=== PATIENT | female | born 1980 | race African-American/Black ===

== ENCOUNTER → 2019-12-12 | Outpatient (CLI) | payer OTHER ==
[2015-08-09 05:35] VITALS: BP 101/64
[~2019-12-12] MED LIST: NAPR-683 PO
--- NOTE | 2019-12-12 17:38 | KCIC ---
Bilateral digital screening mammograms with 3-D tomosynthesis: Reason for examination: Routine baseline screening. Bilateral mammograms in CC and oblique projections were obtained with 2-D imaging and 3-D tomosynthesis imaging on a Siemens Inspiration unit and reviewed on the workstation. Interpretation was made with the benefit of CAD. The skin and nipples show no abnormalities. No abnormal axillary lymph nodes are seen. The breast parenchyma is extremely dense. (Breast density: Category D.) There appear to be small circumscribed lesions superiorly in the left breast which may represent cysts but recommend further evaluation with ultrasound. There are no other dominant masses, suspicious calcifications or architectural distortion. Impression: Dense breast parenchyma. Small circumscribed nodules suggested in the left breast. Recommend further evaluation with ultrasound. Your patient's mammogram demonstrates that she has dense breast tissue (breast density category C or D), which could hide abnormalities, and if she has other risk factors for breast cancer that have been identified, she might benefit from supplemental screening tests that may be suggested by you as her ordering physician. Dense breast tissue, in and of itself, is a relatively common condition. Therefore, this information is not provided to cause undue concern, but rather to raise your awareness and to promote discussion with your patient regarding the presence of other risk factors, in addition to dense breast tissue. Your patient's mammography results will be sent to her. BI-RAD Category 0: Incomplete. Needs additional imaging evaluation. "Our facility is accredited by the [employer] Mammography [employer]." This patient's information has been entered into a reminder system for the patient to be notified with the results of her examination and a target date for the next mammogram. Electronically signed by: Bobbi Donovan MD (12/12/2019 5:35 PM) [id number]
== END ==
LOC: KCIC MAMMO 07:55
PROVIDERS: ATTEND Obstetrics & Gynecology
DX: Z12.31 Encounter for screening mammogram for malignant neoplasm of breast (principal); N64.89 Other specified disorders of breast
CPT/HCPCS: 77063; 77067

== ENCOUNTER → 2019-12-25 | Outpatient (CLI) | payer OTHER ==
[2015-08-09 05:35] VITALS: BP 101/64
--- NOTE | 2019-12-25 09:48 | KCIC ---
Left breast ultrasound: Reason for examination: Left breast nodules on screening mammogram. Comparison is made to mammographic exam dated 12/12/2019. Left whole breast ultrasound including evaluation of all 4 quadrants and the retroareolar and axillary regions of the left breast was performed. There is a 5.6 mm cyst at the 2:00 position 5 cm from the nipple. There is a 8.5 mm cyst at the 2:30 position 6 cm from the nipple. There is also a an 8.9 mm cyst at the 11:00 position 4 cm from the nipple. No solid or suspicious-appearing nodules are seen. No abnormal appearing lymph nodes are seen in the left axilla. IMPRESSION: Left breast cysts. No suspicious abnormality seen. Recommend routine mammographic follow-up. BI-RADS Category 2: Benign. "Our facility is accredited by the [employer]ammography [employer]." This patient's information has been entered into a reminder system for the patient to be notified with the results of her examination and a target date for the next mammogram. Electronically signed by: Bobbi Donovan MD (12/25/2019 9:45 AM) [id number]
== END ==
LOC: KCIC US 07:59
PROVIDERS: ATTEND Obstetrics & Gynecology
DX: N60.01 Solitary cyst of right breast (principal)
CPT/HCPCS: 76641

== ENCOUNTER → 2020-02-10 | Outpatient (CLI) | payer OTHER ==
[2015-08-09 05:35] VITALS: BP 101/64
--- NOTE | 2020-02-11 12:45 | RAD ---
Examination: 1. Limited left breast ultrasound. INDICATION: 39-year-old woman recently completed diagnostic imaging for an abnormal left mammogram id entified a palpable area of concern on self exam which was confirmed by her referring physician and r equested for targeted left breast ultrasound. By report, this is a 3 cm palpable mass. COMPARISON: Bilateral mammogram 12/12/2019 and limited left breast ultrasound of 12/25/2019. TECHNIQUE: Grayscale and color Doppler imaging of the left breast was performed in the area of clinic al concern, targeting the 12 to 1:00 position left breast approximately 9 cm from the nipple. Sonogra phic survey of the left axilla was also performed. FINDINGS: Targeted ultrasound of the patient's reported area of palpable concern shows an irregular hypoechoic 1 cm mass that appears to correspond with a scar at the skin surface that patient reports was associa jerome with blunt injury from a softball approximately 20 years ago. On ultrasound, this correlates with the 12:00 position 9 cm from the nipple patient reported area of palpable concern. No significant ab normality on ultrasound was identified at the 1:00 position left breast. IMPRESSION: Suspicious palpable mass measuring 1 cm on ultrasound at the left 12:00 position 9 cm from the nipple . BI-RADS Category 4 Findings suspicious for malignancy Ultrasound-guided left breast biopsy recommended. Discussed with patient. Also telephoned findings and recommendations to the patient's referring physician Dr. Vannessa Mena's office where Elsie took the report on her behalf at 10:30 AM on 02/11/2020 Electronically signed by: Yo Guillen MD (02/11/2020 12:43 PM) [id number]
== END ==
LOC: US 11:00
PROVIDERS: ATTEND Obstetrics & Gynecology
DX: N60.02 Solitary cyst of left breast (principal); N63.20 Unspecified lump in the left breast, unspecified quadrant
CPT/HCPCS: 76641